=== PATIENT | male | born 1950 | race Caucasian/White ===

== ENCOUNTER → 2017-10-20 | Outpatient (CLI) | payer MEDICARE, BC ==
[~2017-10-20] MED LIST: BUPIVACAINE MPF 0.5% 30 ML VIAL. ONE; LIDOCAINE 1% PF 30 ML VIAL. ONE
== END | disposition home or self-care (01) ==
LOC: SURG 12:23
PROVIDERS: ATTEND Anesthesiology Pain Medicine
DX: M47.812 Spondylosis without myelopathy or radiculopathy, cervical region (principal); I10 Essential (primary) hypertension; Z87.39 Personal history of other diseases of the musculoskeletal system and connective tissue; Z86.73 Personal history of transient ischemic attack (TIA), and cerebral infarction without residual deficits; Z98.890 Other specified postprocedural states
CPT/HCPCS: 64490; 64491; 64492; J2001; J3490; 64450

== ENCOUNTER → 2018-03-09 | Day surgery (SDC) | payer MEDICARE, BC ==
[~2018-03-09] MED LIST changes: +DEXAMETHASONE SOD PHOS 4 MG/ML VIAL ONE; +HYDR25TA9 PO; +IV RINGERS SOLUTION,LACTATED 1,000 ML IV SCH; +LOSA25TA5 PO; +MELO15TA23 PO; +METO50TA29 PO; +MIDAZOLAM HCL PF 2 MG/2 ML VIAL. ONE; +OMEP40CA5 PO; +VENL75CA PO
[2018-03-09 13:06] VITALS: BP 125/91
== END | disposition home or self-care (01) ==
LOC: SDC 10:06 → EDSTATUS 13:30
PROVIDERS: ATTEND Anesthesiology Pain Medicine
DX: M47.812 Spondylosis without myelopathy or radiculopathy, cervical region (principal)
CPT/HCPCS: 63661; 64633; 64634; 99152; J1100; J2001; J2250; J3010; J3490; J7120

== ENCOUNTER → 2018-03-23 | Day surgery (SDC) | payer MEDICARE, BC ==
[2018-03-09 13:06] VITALS: BP 125/91
[~2018-03-23] MED LIST changes: -BUPIVACAINE MPF 0.5% 30 ML VIAL. ONE; -DEXAMETHASONE SOD PHOS 4 MG/ML VIAL ONE; -IV RINGERS SOLUTION,LACTATED 1,000 ML IV SCH; -LIDOCAINE 1% PF 30 ML VIAL. ONE; -MIDAZOLAM HCL PF 2 MG/2 ML VIAL. ONE
== END | disposition home or self-care (01) ==
LOC: SURG 09:26
PROVIDERS: ATTEND Anesthesiology Pain Medicine
DX: M54.5 Low back pain (principal); Z53.8 Procedure and treatment not carried out for other reasons

== ENCOUNTER → 2018-03-23 | Day surgery (SDC) | payer MEDICARE, BC ==
[~2018-03-23] MED LIST changes: +BUPIVACAINE MPF 0.5% 30 ML VIAL. ONE; +DEXAMETHASONE SOD PHOS 4 MG/ML VIAL ONE; +LIDOCAINE 1% PF 30 ML VIAL. ONE; +MIDAZOLAM HCL PF 2 MG/2 ML VIAL. ONE
[2018-03-23 16:47] VITALS: BP 133/99
== END | disposition home or self-care (01) ==
LOC: SURG 09:57
PROVIDERS: ATTEND Anesthesiology Pain Medicine
DX: M47.812 Spondylosis without myelopathy or radiculopathy, cervical region (principal); I10 Essential (primary) hypertension; Z72.89 Other problems related to lifestyle; M19.90 Unspecified osteoarthritis, unspecified site; Z90.49 Acquired absence of other specified parts of digestive tract; Z79.899 Other long term (current) drug therapy; Z98.890 Other specified postprocedural states; Z96.659 Presence of unspecified artificial knee joint
CPT/HCPCS: 64633; 64634; 99152; 99153; J1100; J2001; J2250; J3010; J3490

== ENCOUNTER → 2020-08-23 | Outpatient (CLI) | payer MEDICARE, BC ==
[~2020-08-23] MED LIST changes: +ALLO100T PO; +ATOR40TA59 PO; -BUPIVACAINE MPF 0.5% 30 ML VIAL. ONE; -DEXAMETHASONE SOD PHOS 4 MG/ML VIAL ONE; +DONE10TA7 PO; +HYDR-2145 PO; +HYDR-2765 PO; -HYDR25TA9 PO; -LIDOCAINE 1% PF 30 ML VIAL. ONE; +LOSA25TA11 PO; -LOSA25TA5 PO; +METO-247 PO; -MIDAZOLAM HCL PF 2 MG/2 ML VIAL. ONE; +MV-M1TAB7 PO; +OMEP40CA45 PO; -OMEP40CA5 PO
== END ==
LOC: LAB 09:00
PROVIDERS: ATTEND Nurse Anesthetist, Certified Registered
DX: Z01.812 Encounter for preprocedural laboratory examination (principal); R14.2 Eructation; R10.13 Epigastric pain; Z20.822 Contact with and (suspected) exposure to COVID-19
CPT/HCPCS: U0003

== ENCOUNTER → 2020-08-27 | Day surgery (SDC) | payer MEDICARE, BC ==
[~2020-08-27] MED LIST changes: +IPRATRPIUM/ALBUTEROL 0.5/2.5MG 3 ML NEBU. NEB PRN; +IV RINGERS SOLUTION,LACTATED 1,000 ML IV SCH; +LIDOCAINE 2% PF 5 ML VIAL. ONE; +MIDAZOLAM HCL PF 2 MG/2 ML VIAL. IV ONE; +PROPOFOL 10,000 MCG/ML (20ML) VIAL IV ONE
[2020-08-27 08:22] VITALS: BP 149/108
== END | disposition home or self-care (01) ==
LOC: SURG 06:34
PROVIDERS: ATTEND Emergency Medicine
DX: Z12.11 Encounter for screening for malignant neoplasm of colon (principal); K30 Functional dyspepsia; K44.9 Diaphragmatic hernia without obstruction or gangrene; K29.70 Gastritis, unspecified, without bleeding; K22.2 Esophageal obstruction; K57.30 Diverticulosis of large intestine without perforation or abscess without bleeding; K62.1 Rectal polyp; I10 Essential (primary) hypertension; M19.90 Unspecified osteoarthritis, unspecified site; Z90.49 Acquired absence of other specified parts of digestive tract; Z79.899 Other long term (current) drug therapy; Z86.010 Personal history of colon polyps; Z98.890 Other specified postprocedural states; Z96.659 Presence of unspecified artificial knee joint; Z72.89 Other problems related to lifestyle; Z87.39 Personal history of other diseases of the musculoskeletal system and connective tissue; Z86.73 Personal history of transient ischemic attack (TIA), and cerebral infarction without residual deficits
CPT/HCPCS: 43239; 43450; 45380; 88305; 88342; J2001; J2704; J7120